=== PATIENT | male | born 1950 | race Caucasian/White ===

== ENCOUNTER 2019-05-10 02:37 | Outpatient (CLI) | payer OTHER, SELFPAY ==
[2019-05-10 10:40] LABS: Anion Gap 7.4 mmol/L (3-11); BUN 16 mg/dL (7-18); CO2 28.6 mmol/L (21.0-32.0); CREATININE 0.94 mg/dL (0.70-1.30); Calculated LDL 152 mg/dL; Chloride 105 mmol/L (98-107); Cholesterol 210 mg/dL (50-200); Glucose 87 mg/dL (70-100); HDL Cholesterol 41 mg/dL (40-60); Potassium 4.6 mmol/L (3.5-5.1); Sodium 141 mmol/L (136-145); Triglyceride 89 mg/dL (30-150)
[2019-05-11 10:25] LABS: PSA, Screening 1.9 ng/ml (0-4.5)
== END 2019-05-10 02:57 ==
PROVIDERS: PCP Emergency Medicine; Visit Provider Emergency Medicine
DX: I10 Essential (primary) hypertension (principal); Z12.5 Encounter for screening for malignant neoplasm of prostate
CPT/HCPCS: 36415; 80048; 80061; 84153

== ENCOUNTER 2020-08-07 03:41 | Outpatient (CLI) | payer OTHER, SELFPAY ==
[2020-08-07 09:37] LABS: Hemoglobin A1C 5.2 % (<5.7)
[2020-08-07 10:32] LABS: Anion Gap 7.6 mmol/L (3-11); BUN 24 mg/dL (7-18); CO2 26.4 mmol/L (21.0-32.0); CREATININE 0.83 mg/dL (0.70-1.30); Calcium 8.8 mg/dL (8.5-10.1); Calculated LDL 171 mg/dL (<100); Chloride 107 mmol/L (98-107); Cholesterol 227 mg/dL (<200); Glucose 89 mg/dL (74-106); HDL Cholesterol 43 mg/dL (40-60); Potassium 4.1 mmol/L (3.5-5.1); Sodium 141 mmol/L (136-145); Triglyceride 69 mg/dL (<150)
[2020-08-07 10:40] LABS: C-Reactive Protein 0.11 mg/dL (0.0-0.3)
[2020-08-08 09:11] LABS: Homocysteine 20.5 umol/L (5.0-13.9)
[2020-08-08 22:02] LABS: PSA, Screening 2.5 ng/mL (0.0-6.5)
== END 2020-08-07 04:01 ==
PROVIDERS: PCP Emergency Medicine; Visit Provider Emergency Medicine
DX: I10 Essential (primary) hypertension (principal); E78.5 Hyperlipidemia, unspecified; E11.9 Type 2 diabetes mellitus without complications; R41.89 Other symptoms and signs involving cognitive functions and awareness; Z12.5 Encounter for screening for malignant neoplasm of prostate
CPT/HCPCS: 36415; 80048; 80061; 83090; 84153; 83036; 86140

== ENCOUNTER 2020-10-23 03:41 | Outpatient (CLI) | payer OTHER, SELFPAY ==
[2020-10-23 11:08] LABS: ALT 21 U/L (16-63)
[2020-10-23 11:09] LABS: Calculated LDL 98 mg/dL (<100); Cholesterol 146 mg/dL (<200); HDL Cholesterol 39 mg/dL (40-60); Triglyceride 45 mg/dL (<150)
[2020-10-24 14:12] LABS: Lipoprotein (a) <6 mg/dL (<=30)
== END 2020-10-23 03:42 | disposition home or self-care (01) ==
LOC: LBO 03:41
PROVIDERS: PCP Emergency Medicine; Visit Provider Internal Medicine
DX: E78.00 Pure hypercholesterolemia, unspecified (principal)
CPT/HCPCS: 36415; 80061; 83695; 84460

== ENCOUNTER 2021-01-02 18:50 | Outpatient (REF) | payer OTHER, SELFPAY ==
[2021-01-02 13:08] LABS: Abs Immature Grans 0.03 10^3/uL (0.0-0.06); Absolute Basophil Count 0.02 10^3/uL (0.0-0.2); Absolute Eosinophil Count 0.04 10^3/uL (0.0-0.7); Absolute Monocyte Count 0.58 10^3/uL (0.1-0.8); Basophils % 0.3; Eosinophils % 0.7; HCT 43.8 % (40.0-50.0); HGB 14.9 g/dL (13.5-17.5); Immature Grans % 0.5; Lymphocytes % 12.1; MCH 31.8 pg (27.0-33.0); MCV 93.4 fL (80-95); MPV 11.1 fL (8.0-11.0); Monocytes % 10.1; Neutrophils % 76.3; Nucleated RBC 0 %; Platelet Count 185 10^3/uL (130-400); RBC 4.69 10^6/uL (4.36-5.78); RDW-SD 44.6 fL; WBC 5.77 10^3/uL (4.4-10.8)
[2021-01-02 13:13] LABS: C-Reactive Protein 11.89 mg/dL (0.0-0.3)
[2021-01-03 10:24] LABS: Lyme Ab w Rflx to Lyme Confirm Negative (Negative)
[2021-01-04 21:23] LABS: Anaplasma phagocytophilum Negative (Negative); B. miyamotoi PCR Negative (Negative); Babesia divergens/MO-1 Negative (Negative); Babesia duncani Negative (Negative); Babesia microti Negative (Negative); Ehrlichia chaffeensis Negative (Negative); Ehrlichia ewingii/canis Negative (Negative); Ehrlichia muris eauclairensis Negative (Negative)
== END 2021-01-02 18:51 | disposition home or self-care (01) ==
LOC: LBN 18:50
PROVIDERS: PCP Emergency Medicine; Visit Provider Physician Assistant
DX: R50.9 Fever, unspecified (principal); J02.9 Acute pharyngitis, unspecified
CPT/HCPCS: 87798; 85025; 86140; 86618; 87070; 87086

== ENCOUNTER 2021-02-26 22:53 | Outpatient (REF) | payer OTHER, SELFPAY ==
[2021-02-26 13:45] LABS: Abs Immature Grans 0.04 10^3/uL (0.0-0.06); Absolute Basophil Count 0.01 10^3/uL (0.0-0.2); Absolute Eosinophil Count 0.26 10^3/uL (0.0-0.7); Absolute Lymphocyte Count 0.85 10^3/uL (1.2-3.4); Absolute Monocyte Count 0.67 10^3/uL (0.1-0.8); Absolute Neutrophil Count 8.41 10^3/uL (1.2-6.7); Basophils % 0.1; Eosinophils % 2.5; HCT 47.5 % (40.0-50.0); HGB 15.8 g/dL (13.5-17.5); Immature Grans % 0.4; Lymphocytes % 8.3; MCH 31.5 pg (27.0-33.0); MCHC 33.3 % (32.0-36.0); MCV 94.6 fL (80-95); MPV 10.6 fL (8.0-11.0); Monocytes % 6.5; Neutrophils % 82.2; Nucleated RBC 0 %; Platelet Count 245 10^3/uL (130-400); RBC 5.02 10^6/uL (4.36-5.78); RDW 13.9 % (11.8-14.1); RDW-SD 46.2 fL; WBC 10.24 10^3/uL (4.4-10.8)
[2021-02-26 13:50] LABS: C-Reactive Protein 4.19 mg/dL (0.0-0.3)
[2021-02-27 11:27] LABS: Lyme Ab w Rflx to Lyme Confirm Positive (Negative)
[2021-02-27 14:36] LABS: Lyme IgG Ab Positive (Negative); Lyme IgM Ab Positive (Negative)
== END 2021-02-26 22:54 | disposition home or self-care (01) ==
LOC: LBN 22:53
PROVIDERS: PCP Emergency Medicine; Visit Provider Emergency Medicine
DX: G51.0 Bell's palsy (principal); M25.59 Pain in other specified joint
CPT/HCPCS: 86617; 85025; 86140; 86618

== ENCOUNTER 2022-01-15 18:06 | Outpatient (REF) | payer MEDICARE, SELFPAY ==
[2022-01-17 11:24] LABS: COVID-19 RT-PCR UVMMC Result Negative (Negative)
== END 2022-01-15 18:07 | disposition home or self-care (01) ==
LOC: LBN 18:06
PROVIDERS: PCP Family Medicine; Visit Provider Physician Assistant Medical
DX: Z20.822 Contact with and (suspected) exposure to COVID-19 (principal)
CPT/HCPCS: U0003

== ENCOUNTER 2022-02-21 01:36 | Outpatient (CLI) | payer MEDICARE, SELFPAY ==
[2022-02-21 13:35] LABS: ALT 20 U/L (16-63); AST 14 U/L (15-37); Albumin 3.8 g/dL (3.4-5.0); Alkaline Phosphatase 58 U/L (46-116); Anion Gap 7.8 mmol/L (3-11); BUN 21 mg/dL (7-18); Bilirubin, Total 0.4 mg/dL (0.2-1.0); CO2 28.2 mmol/L (21.0-32.0); Calcium 8.9 mg/dL (8.5-10.1); Chloride 107 mmol/L (98-107); Glucose 86 mg/dL (74-106); Potassium 4.3 mmol/L (3.5-5.1); Sodium 143 mmol/L (136-145); Total Protein 7.1 g/dL (6.4-8.2)
[2022-02-21 22:39] LABS: PSA, Diagnostic 2.6 ng/mL (<=6.5)
[2022-02-24 11:57] LABS: Lyme Ab w Rflx to Lyme Confirm Positive (Negative)
[2022-02-24 12:48] LABS: Lyme IgG Ab Positive (Negative); Lyme IgM Ab Positive (Negative)
[2022-02-25 18:34] LABS: Anaplasma phagocytophilum Negative (Negative); B. miyamotoi PCR Negative (Negative); Babesia divergens/MO-1 Negative (Negative); Babesia duncani Negative (Negative); Babesia microti Negative (Negative); Ehrlichia chaffeensis Negative (Negative); Ehrlichia ewingii/canis Negative (Negative); Ehrlichia muris eauclairensis Negative (Negative)
== END 2022-02-21 01:37 | disposition home or self-care (01) ==
LOC: LBO 01:36
PROVIDERS: PCP Family Medicine; Visit Provider Family Medicine
DX: I10 Essential (primary) hypertension (principal); N40.0 Benign prostatic hyperplasia without lower urinary tract symptoms; W57.XXXA Bitten or stung by nonvenomous insect and other nonvenomous arthropods, initial encounter; T14.8XXA Other injury of unspecified body region, initial encounter
CPT/HCPCS: 36415; 80053; 86617; 87798; 84153; 86618

== ENCOUNTER 2023-01-15 10:22 | Outpatient (REF) | payer MEDICARE, SELFPAY ==
[2023-01-15 13:28] LABS: Abs Immature Grans 0.02 10^3/uL (0.0-0.06); Absolute Basophil Count 0.06 10^3/uL (0.0-0.2); Absolute Eosinophil Count 0.21 10^3/uL (0.0-0.7); Absolute Lymphocyte Count 1.12 10^3/uL (1.2-3.4); Absolute Neutrophil Count 4.18 10^3/uL (1.2-6.7); Eosinophils % 3.5; HCT 49.7 % (40.0-50.0); HGB 17.2 g/dL (13.5-17.5); Immature Grans % 0.3; Lymphocytes % 18.7; MCH 31.6 pg (27.0-33.0); MCHC 34.6 % (32.0-36.0); MCV 91 fL (80-95); MPV 10.9 fL (8.0-11.0); Monocytes % 6.7; Neutrophils % 69.8; Platelet Count 247 10^3/uL (130-400); RBC 5.45 10^6/uL (4.36-5.78); RDW 13.2 % (11.8-14.1); RDW-SD 43.8 fL; WBC 5.99 10^3/uL (4.4-10.8)
[2023-01-16 12:15] LABS: Lyme Ab w Rflx to Lyme Confirm Positive (Negative)
[2023-01-16 13:59] LABS: Lyme IgG Ab Positive (Negative); Lyme IgM Ab Positive (Negative)
[2023-01-18 16:58] LABS: Anaplasma phagocytophilum Negative (Negative); B. miyamotoi PCR Negative (Negative); Babesia divergens/MO-1 Negative (Negative); Babesia duncani Negative (Negative); Babesia microti Negative (Negative); Ehrlichia chaffeensis Negative (Negative); Ehrlichia ewingii/canis Negative (Negative); Ehrlichia muris eauclairensis Negative (Negative)
== END 2023-01-15 10:23 | disposition home or self-care (01) ==
LOC: LBN 10:22
PROVIDERS: PCP Family Medicine; Visit Provider Physician Assistant
DX: R51.9 Headache, unspecified (principal); Z01.84 Encounter for antibody response examination
CPT/HCPCS: 86617; 87798; 85025; 86618

== ENCOUNTER 2023-06-11 07:42 | Emergency (ER) | payer MEDICARE, SELFPAY ==
[2023-06-11] VITALS (12 sets, daily range): BP systolic 110–152; BP diastolic 55–79; PULSE 49–68; RESP 18; TEMP 36.4; O2SAT 98
--- NOTE | 2023-06-11 08:06 | ED.GENADUL_ITS ---
Discharge Plan Disposition Patient Disposition: Home Discharge Details Clinical Impression: Nephrolithiasis, Left flank pain Primary Care Provider: Gaviota Smart ED Provider: Sanchez Nick Home Meds and New Rx's Prescriptions: New oxycodone 5 mg capsule 5 mg PO Q8H PRN (Reason: pain) Qty: 7 0RF Continued acyclovir 200 mg capsule 200 mg PO QID PRN (Reason: ulcer) Qty: 90 1RF clotrimazole-betamethasone 1-0.05 % cream 1 applic Topical TID PRN (Reason: dermatitis) Qty: 45 0RF triamcinolone acetonide 0.1 % cream 1 applic topical BID Qty: 80 0RF Rx Instructions: use at affected area mupirocin 2 % ointment 1 applic topical TID Qty: 15 0RF GenTeal Tears Severe Gel 0.3 % gel 1 drp ophthalmic (eye) QID PRN (Reason: dry eyes) Qty: 10 2RF hydrochlorothiazide 12.5 mg tablet 12.5 mg PO DAILY Qty: 90 3RF Hold Instructions: 02/21/19--Wants to manage HTN with lifestyle omeprazole 20 mg capsule,delayed release(DR/EC) 20 mg PO DAILY Qty: 90 4RF ondansetron 4 mg tablet,disintegrating 4 mg PO Q8H PRN (Reason: nausea and vomiting) Qty: 90 3RF Discontinued hydrocodone-acetaminophen 5-325 mg tablet 1 tab PO BID MDD 10mg PRN (Reason: pain) Qty: 14 0RF Discharge Instructions Instructions: Kidney Stones (ED) Additional Instructions: Please continue Flomax and aggressive oral hydration. Take the pain medication as prescribed. Can also take Tylenol and Motrin and use the narcotic for severe pain. Make sure to supplement this with stool softener. If your pain is not controlled, you are having vomiting, fever or other symptoms please follow-up with the [facility] emergency department so that your urologist can manage the symptoms. Medical Decision Making Emergent evaluation of flank pain. Initial differential includes renal colic, UTI, doubt bowel obstruction, no evidence of zoster. Initial plan for labs, fluid resuscitation and pain management. 0845 Lab work reviewed. Creatinine slightly more elevated than it was at [facility] on 06/06 (1.23) urinalysis with hematuria, no signs of infection. Will order ultrasound to evaluate given worsening renal function 0900: Patient denies any significant improvement in symptoms after droperidol. Will give IV morphine 1130: Ultrasound report reviewed, there is mild hydro but jets on the left side. No evidence of obstruction. Pain initially improved with morphine but is now returning, will give an oral dose of medication. I discussed with [facility] urology. Patient's symptoms are expected for this. After the lithotripsy. The goal would be to get adequate pain control. If patient's pain cannot be controlled, they recommend that he come to the [facility] ER for admission for stent placement. 1200: Patient reports improvement in symptoms with the oxycodone. Will prescribe a short course of these as well as Zofran. Recommend continued Motrin and Tylenol. Recommend that he restart his Flomax. At this time he is stable for discharge home. Strict return precautions advised recommend following up with [facility] if his symptoms have not resolved Medical Records Medical records reviewed: Yes I reviewed the patient's medical records. Medical records narrative: [facility] [place] [facility] [place] L [facility] on 05/29/23 ED visit 05/[address] 06/04: 5mm distal left steinstrasse CT 06/05: distal progression of stone Lab Data Lab results reviewed: Yes I reviewed the patient's lab results. HPI General Date/Time Provider Initiated Documentation: 06/11/23 07:46 . Limitations to Documentation: no limitations . Information obtained by: patient . HPI Narrative: 73-year-old gentleman with past medical history of renal colic and recent lithotripsy presents for evaluation of left flank pain. He has been having issues and repeated ER visits and hospitalization at [facility] over the last 2 weeks. Symptoms had improved but starting last night symptoms returned. Pain is severe, not relieved with Vicodin. Associated with nausea but no vomiting. Denies any dysuria, hematuria, difficulty urinating. He has not noted any stones passing. He had been taking Flomax but stopped it because he thought it was giving him a rash Related Data Home Medications Medication Instructions Recorded Confirmed artificial tears(hypromellose) 0.3 1 drp ophthalmic (eye) QID PRN dry 03/22/21 06/11/23 % eye gel (GenTeal Tears Severe) eyes #10 grams acyclovir 200 mg capsule 200 mg PO QID PRN ulcer #90 caps 12/17/21 06/11/23 clotrimazole-betamethasone 1 1 applic topical TID PRN 12/30/21 06/11/23 %-0.05 % topical cream dermatitis #45 grams triamcinolone acetonide 0.1 % 1 applic topical BID #80 grams 12/30/21 06/11/23 topical cream hydrochlorothiazide 12.5 mg tablet 12.5 mg PO DAILY #90 tab-caps 01/12/23 06/11/23 mupirocin 2 % topical ointment 1 applic topical TID #15 grams 01/15/23 06/11/23 omeprazole 20 mg capsule,delayed 20 mg PO DAILY #90 caps 06/09/23 06/11/23 release ondansetron 4 mg disintegrating 4 mg PO Q8H PRN nausea and 06/11/23 tablet vomiting #90 tabs oxycodone 5 mg capsule 5 mg PO Q8H PRN pain #7 caps 06/11/23 Previous Rx's Medication Instructions Recorded artificial tears(hypromellose) 0.3 1 drp ophthalmic (eye) QID PRN dry 03/22/21 % eye gel (GenTeal Tears Severe) eyes #10 grams acyclovir 200 mg capsule 200 mg PO QID PRN ulcer #90 caps 12/17/21 clotrimazole-betamethasone 1 1 applic topical TID PRN 12/30/21 %-0.05 % topical cream dermatitis #45 grams triamcinolone acetonide 0.1 % 1 applic topical BID #80 grams 12/30/21 topical cream hydrochlorothiazide 12.5 mg tablet 12.5 mg PO DAILY #90 tab-caps 01/12/23 mupirocin 2 % topical ointment 1 applic topical TID #15 grams 01/15/23 omeprazole 20 mg capsule,delayed 20 mg PO DAILY #90 caps 06/09/23 release ondansetron 4 mg disintegrating 4 mg PO Q8H PRN nausea and 06/11/23 tablet vomiting #90 tabs oxycodone 5 mg capsule 5 mg PO Q8H PRN pain #7 caps 06/11/23 Allergies Allergy/AdvReac Type Severity Reaction Status Date / Time lisinopril AdvReac Intermediate Nausea, Verified 06/11/23 07:51 body aches amlodipine AdvReac Mild nausea Verified 06/11/23 07:51 General Stated Complaint: Urinary ELLEN: 3 PFSH All Active Problems (Updated 06/11/23 @ 12:36 by Sanchez Nick MD) Left flank pain (Acute) Esophageal thickening (Acute) Inguinal hernia (Acute) Left groin hernia (Acute) Nephrolithiasis (Chronic) Nail dystrophy (Acute) Toe anomaly (Acute) Tick bite (Acute) Skier's thumb (Acute) Herrmann's palsy (Acute) Blepharitis (Acute) Essential hypertension (Acute 10/21/16) Family History Mother , AGE 85 Depression Alcohol abuse Hypertension Father , AGE 37 Diabetes Depression Alcohol abuse Sister Alcohol abuse Brother Heart disease Hyperlipidemia Prostate cancer Alcohol abuse Maternal Grandfather , AGE 63 Diabetes Alcohol abuse Maternal Grandmother , AGE 91 Alcohol abuse Brother Alcohol abuse Depression Son No problems noted. Son No problems noted. Social History Smoking/Tobacco Use Status: Never Second Hand Exposure: No Smoking risk assessment performed?: Yes Alcohol Intake: never Drug use: Never Substance use type: does not use current occupation: TEACHER Pets and animals: Yes Pets and animals: cat(s) What type of physical activity do you participate in: swimming Duration: 30-45 minutes/day Frequency: 3-4 times per week Yolanda/Gnosticist: No preference Special yolanda needs: No Exam Narrative Exam Narrative: Review of Systems: All systems reviewed & are unremarkable except as noted in HPI and below: CONSTITUTIONAL: Alert and oriented Well-developed, no acute distress HEENT: NACT EYES: PERRL, no conjunctival injection CVS: RRR, No murmurs or gallops. Peripheral pulses 2+ and equal in all extremities Brisk capillary refill in all extremities. No peripheral edema RESP: Unlabored respiratory effort, Clear to auscultation bilaterally No wheezes rales or rhonchi GI: Soft, Nontender, Nondistended, No organomegaly, no CVAT MSK: Extremities with full range of motion, no deformity or TTP SKIN: Warm, Dry. No rashes or lesions. NEURO: No focal neurologic deficits. Course Vital Signs Vital signs: Vital Signs Temperature 36.4 C L 06/11/23 07:47 Pulse 65 06/11/23 07:47 Respiratory Rate 18 06/11/23 07:47 Blood Pressure 152/79 H 06/11/23 07:47 Pulse Oximetry 98 06/11/23 07:47 Temperature 36.4 C L 06/11/23 07:47 Temperature Source Axillary 06/11/23 07:47 Pulse 65 06/11/23 07:47 Respiratory Rate 18 06/11/23 07:47 Respiratory Effort Normal, Non-Labored 06/11/23 07:51 Blood Pressure 152/79 H 06/11/23 07:47 Blood Pressure Position Sitting 06/11/23 07:47 Pulse Oximetry 98 06/11/23 07:47 Oxygen Delivery Method Room Air 06/11/23 07:47 Oxygen Flow Rate 0 06/11/23 07:47
[2023-06-11 08:16] LABS: Bilirubin Negative (Negative); Blood Moderate (Negative); Clarity Clear (Clear); Glucose Negative (Negative); Ketones Negative (Negative); Leukocyte Esterase Negative (Negative); Nitrite Negative (Negative); Specific Gravity >= 1.030 (1.005-1.025); Urobilinogen 0.2 mg/dL (Up to 0.2); pH 5.5 (5-8)
[2023-06-11 08:23] LABS: Abs Immature Grans 0.03 10^3/uL (0.0-0.06); Absolute Basophil Count 0.06 10^3/uL (0.0-0.2); Absolute Eosinophil Count 0.15 10^3/uL (0.0-0.7); Absolute Lymphocyte Count 0.91 10^3/uL (1.2-3.4); Absolute Monocyte Count 0.39 10^3/uL (0.1-0.8); Absolute Neutrophil Count 7.23 10^3/uL (1.2-6.7); Basophils % 0.7; Eosinophils % 1.7; HGB 15.3 g/dL (13.5-17.5); Immature Grans % 0.3; Lymphocytes % 10.4; MCH 30.6 pg (27.0-33.0); MCV 90 fL (80-95); MPV 9.5 fL (8.0-11.0); Monocytes % 4.4; Neutrophils % 82.5; Platelet Count 320 10^3/uL (130-400); RDW 12.7 % (11.8-14.1); WBC 8.77 10^3/uL (4.4-10.8)
[2023-06-11 08:23] LABS: Bacteria Few HPF (Negative); C & S Indicated? Yes; Casts Negative LPF (Negative); Crystals Negative HPF (Negative); Epithelial Cells Few HPF (Negative); Mucus Trace (Negative); RBC 20-50 HPF (0-2)
[2023-06-11] MEDS: Normal Saline 1,000 ML 1000 ML IV (08:29)
[2023-06-11 08:38] LABS: ALT 73 U/L (16-63); AST 19 U/L (15-37); Albumin 3.5 g/dL (3.4-5.0); Alkaline Phosphatase 61 U/L (46-116); BUN 29 mg/dL (7-18); Bilirubin, Total 0.6 mg/dL (0.2-1.0); CREATININE 1.5 mg/dL (0.70-1.30); Calcium 8.8 mg/dL (8.5-10.1); Chloride 103 mmol/L (98-107); Estimated GFR 48.85 (mL/min/1.73m2); Glucose 147 mg/dL (74-106); Potassium 3.6 mmol/L (3.5-5.1); Sodium 138 mmol/L (136-145); Total Protein 7.6 g/dL (6.4-8.2)
[2023-06-11] MEDS: Droperidol 5 MG/2 ML VIAL 2.5 MG IVP (08:42)
--- NOTE | 2023-06-11 08:45 | DI.US_ITS ---
Exam(s) US RENAL EXAM: US RENAL CLINICAL HISTORY: renal stones TECHNIQUE: Ultrasound of both kidneys performed using standard protocol. COMPARISON: US CAROTID ULTRASOUND from 05/30/2011 CT RENAL COLIC WO CONTRAST from 02/10/2016 FINDINGS: RIGHT KIDNEY: Measures 9.5 cm in length. There is a 3 x 3 cm area of hypodensity in the right upper lobe region wh ich most probably corresponds to a cyst which was evident on CT scan of 2016. There is also another tiny exophytic 0.7 cm cyst. This is at the lower pole level.. Normal cortical thickness and cortico medullary differentiation .No solid masses No obvious intrarenal calculi nor hydronephrosis. LEFT KIDNEY: Measures 12 cm in length. No cysts evident. Normal cortical thickness and corticomedullary different iaion. No solids masses. There are 2 calculi identified measuring 8 mm (upper pole) and 6 mm (lower pole). There is slight prominence of the renal infundibula of the left kidney. May indicate mild hy dronephrosis. There is no cortical mantle thinning. URINARY BLADDER: Prevoid volume is 162 cc Not able to void No evidence of bladder mass nor diverticuli. Ureterovesical jets: Both identified. But asymmetric, right more prominent than left. IMPRESSION: 1. There are 2 calculi in left kidney, as evident on CT scan of January 2016. Slight dilatation of the infundibulum of this kidney noted. In addition, the left ureterovesical jet in the urinary bladder is observed to be less strong than the right side. Cannot exclude the possibly of a non completely o bstructive calculus in the left ureter. Correlation with clinical findings recommended. 2. There is a 3 cm cyst in the right kidney corresponding to what is seen on 2016 CT scan. Another finding in the right kidney noted which is probably a column of Nando. The multiple small calculi s een in the right kidney on the 2016 CT scan are not seen on ultrasound examination today. 3. If clinically indicated follow-up CT scan for added sensitivity and specificity can be performed. DATA REPOSITORY:
[2023-06-11] MEDS: MORPHine 10 MG/ML VIAL 6 MG IVP (09:11)
[2023-06-11] MEDS: oxyCODONE 5 MG TAB PO (11:35)
== END 2023-06-11 12:50 | disposition home or self-care (01) ==
PROVIDERS: Emergency Provider Emergency Medicine; PCP Family Medicine
DX: N20.0 Calculus of kidney (principal); I10 Essential (primary) hypertension
CPT/HCPCS: 76770; 80053; 96361; 96374; 96375; 99284; 81003; 81015; 85025; 87086; J1790; J2270

== ENCOUNTER → 2023-06-17 08:54 | Outpatient (BNVA) | payer MEDICARE, SELFPAY | PROVIDERS: PCP Family Medicine; Referring Provider Family Medicine; Visit Provider Surgery | DX: K22.89 Other specified disease of esophagus (principal) | CPT/HCPCS: 99214 ==

== ENCOUNTER 2023-07-03 09:26 | Day surgery (SDC) | payer MEDICARE, SELFPAY ==
--- NOTE | 2023-07-02 20:12 | W.PM.DSUDISC ---
Date of service: 07/03/23 Discharge Plan Disposition Patient Disposition: Home Condition: Good Discharge Details Reason For Visit: EGD Attending Provider: Crispin Acosta Primary Care Provider: Gaviota Smart Home Meds and New Rx's Prescriptions: Continued acyclovir 200 mg capsule 200 mg PO QID PRN (Reason: ulcer) Qty: 90 1RF tamsulosin [Flomax] 0.4 mg capsule 0.4 mg PO DAILY clotrimazole-betamethasone 1-0.05 % cream 1 applic Topical TID PRN (Reason: dermatitis) Qty: 45 0RF triamcinolone acetonide 0.1 % cream 1 applic topical BID Qty: 80 0RF Rx Instructions: use at affected area mupirocin 2 % ointment 1 applic topical TID Qty: 15 0RF GenTeal Tears Severe Gel 0.3 % gel 1 drp ophthalmic (eye) QID PRN (Reason: dry eyes) Qty: 10 2RF hydrochlorothiazide 12.5 mg tablet 12.5 mg PO DAILY Qty: 90 3RF Hold Instructions: 02/21/19--Wants to manage HTN with lifestyle omeprazole 20 mg capsule,delayed release(DR/EC) 20 mg PO DAILY Qty: 90 4RF Discharge Instructions Additional Instructions: 1. If tolerated, consume a soft, low fiber diet for 1-2 days. 2[address] Do not drive, drink alcohol, operate machinery, make critical decisions, or do activities that require coordination or balance for 24 hours. 3. You may experience a sore throat for 24 to 48 hours. You may use throat lozenges or gargle with warm salt water to relieve the discomfort. 4. Because air was put into your stomach during the procedure, you may experience some belching. 5. Go directly to the emergency room if you notice any of the following: Develop chills (warm to touch), or if you have a thermometer and your temperature is above 101 Difficulty breathing or difficultly swallowing Persistent vomiting Severe abdominal pain, other than gas cramps Severe chest pain Black, tarry stools Any bleeding ? exceeding one tablespoon 6. Call your physician if the site where your intravenous was started becomes red, swollen, painful, and warm to touch. 7. Your physician has reviewed your pre-procedure medications. Please continue to take those medications as previously ordered. You will be given specific information/education regarding any changes to your medications before leaving. Activity:: Activity as Tolerated Diet:: As Tolerated DS: Diagnosis Discharge Diagnosis (1) Esophageal thickening: Status: Acute
--- NOTE | 2023-07-02 20:17 | W.PM.ENDDOP ---
Date of service: 07/03/23 Endoscopy Report DATE OF PROCEDURE: 07/03/23 PRE-OP DIAGNOSIS: Esophageal thickening PROCEDURE: EGD SURGEON: Crispin Acosta ANESTHESIA TYPE: General:No Airway COMPLICATIONS: None DISPOSITION: same day INDICATIONS: Tereso is 73 years old. He underwent CT scan as part of work up for kidney stones. Incidentally, he was found to have esophageal wall thickeing. He is here for diagnostic EGD
[2023-07-03] VITALS (7 sets, daily range): BP systolic 98–130; BP diastolic 57–90; PULSE 62–68; RESP 13–18; TEMP 36.4–36.6; O2SAT 95–98; BMI 25.0
[2023-07-03] MEDS: Lactated Ringers 1,000 ML 80 ML IV (10:11)
--- NOTE | 2023-07-03 11:48 | ANES.PREOP_ITS ---
General Info Date of Service Date Performed: 07/03/23 Height: 5 ft 11 in Weight: 81.3 kg Body Mass Index (BMI): 25.0 Surgical Procedure: Operation Date: 07/03/23 11:35 Proposed Procedure Side Surgeon p Gastroscopy Crispin Acosta MD Meds Allergies and Home Medications Allergies Allergy/AdvReac Type Severity Reaction Status Date / Time lisinopril AdvReac Intermediate Nausea, Verified 07/03/23 09:57 body aches amlodipine AdvReac Mild nausea Verified 07/03/23 09:57 Home Medication Medication Instructions Recorded artificial tears(hypromellose) 0.3 1 drp ophthalmic (eye) QID PRN dry 03/22/21 % eye gel (GenTeal Tears Severe) eyes #10 grams acyclovir 200 mg capsule 200 mg PO QID PRN ulcer #90 caps 12/17/21 clotrimazole-betamethasone 1 1 applic topical TID PRN 12/30/21 %-0.05 % topical cream dermatitis #45 grams triamcinolone acetonide 0.1 % 1 applic topical BID #80 grams 12/30/21 topical cream hydrochlorothiazide 12.5 mg tablet 12.5 mg PO DAILY #90 tab-caps 01/12/23 mupirocin 2 % topical ointment 1 applic topical TID #15 grams 01/15/23 omeprazole 20 mg capsule,delayed 20 mg PO DAILY #90 caps 06/09/23 release tamsulosin 0.4 mg capsule (Flomax) 0.4 mg PO DAILY 06/17/23 Current Visit Medications: Current Medications Generic Name Dose Route Start Last Admin Trade Name Lacey PRN Reason Stop Dose Admin Hyoscyamine Sulfate 0.125 mg 07/02/23 20:20 Hyoscyamine 0.125 Mg Sl/Oral/Chew SL 08/01/23 20:19 DIRECTED PRN Ringer's Solution 1,000 mls @ 80 mls/hr 07/03/23 06:00 07/03/23 10:11 IV 07/03/23 23:59 80 mls/hr INFUSION JESSICA Administration IV Miscellaneous Supplies 1 each 07/03/23 06:00 Iv Access IV 07/03/23 23:59 DIRECTED JESSICA Ondansetron HCl 4 mg 07/02/23 20:20 Ondansetron 4 Mg/2 Ml Vial IVP 08/01/23 20:19 Q4H PRN PRN Nausea / Vomiting Sodium Chloride 0 ml 07/03/23 06:00 Normal Saline Flush 10 Ml Syr IV 07/03/23 23:59 PRN PRN Sodium Chloride 0 ml 07/03/23 06:00 Normal Saline 10 Ml Vial IJ 07/03/23 23:59 DIRECTED PRN Sterile Water 0 ml 07/03/23 06:00 Water,Injection,Sterile 10 Ml Vial IJ 07/03/23 23:59 DIRECTED PRN PFSH Active Problems Active Problems: Problem Status Onset Code Left ureteral stone ~06/04/23 N20.1 Left flank pain R10.9 Esophageal thickening K22.89 Inguinal hernia K40.90 Left groin hernia K40.90 Nephrolithiasis N20.0 Nail dystrophy L60.3 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 Tick bite W57.XXXA Skier's thumb S63.649A 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 Blepharitis H01.009 Essential hypertension 10/21/16 I10 Tobacco Smoking/Tobacco Use Status: Never Second hand exposure: No Alcohol Alcohol Intake: never Substance Use Substance use: Never Substance use type: does not use Vital Signs and Lab Results Vital Signs Most Recent Vital Signs in EMR: Most Recent Vital Signs Temp Pulse Resp BP Pulse Ox 36.5 C 68 16 125/88 98 07/03/23 09:47 07/03/23 09:47 07/03/23 09:47 07/03/23 09:47 07/03/23 09:47 Lab Results Blood Type / Crossmatch: No Data to Display Complete Blood Count: White Blood Count 8.77 10^3/uL (4.4-10.8) 06/11/23 08:16 Red Blood Count 5.00 10^6/uL (4.36-5.78) 06/11/23 08:16 Hemoglobin 15.3 g/dL (13.5-17.5) 06/11/23 08:16 Hematocrit 45.0 % (40.0-50.0) 06/11/23 08:16 Platelet Count 320 10^3/uL (130-400) 06/11/23 08:16 Complete Metabolic Panel: Sodium 138 mmol/L (136-145) 06/11/23 08:16 Potassium 3.6 mmol/L (3.5-5.1) 06/11/23 08:16 Chloride 103 mmol/L (98-107) 06/11/23 08:16 Carbon Dioxide 25.0 mmol/L (21.0-32.0) 06/11/23 08:16 BUN 29 mg/dL (7-18) H 06/11/23 08:16 Creatinine 1.5 mg/dL (0.70-1.30) H 06/11/23 08:16 Est GFR (CKD-EPI 2020) 48.85 (mL/min/1.73m2) 06/11/23 08:16 Calcium 8.8 mg/dL (8.5-10.1) 06/11/23 08:16 Albumin 3.5 g/dL (3.4-5.0) 06/11/23 08:16 Glucose 147 mg/dL (74-106) H 06/11/23 08:16 Liver Function Panel: Alanine Aminotransferase (ALT/SGPT) 73 U/L (16-63) H 06/11/23 0 8:16 Aspartate Amino Transf (AST/SGOT) 19 U/L (15-37) 06/11/23 08:16 Coagulation Panel: No Data to Display Cardiac Panel: No Data to Display Arterial Blood Gas: No Data to Display Venous Blood Gas: No Data to Display Pancreas Panel: No Data to Display Thyroid Panel: No Data to Display Infectious Disease: No Data to Display Blood Cultures: No Data to Display Toxicology Panel: No Data to Display Anesthesia Assessment and Plan Anesthesia History Personal History: No History of Anesthesia Complications Family History: No Family History of Anesthesia Complications Exercise Tolerance Exercise Tolerance: Metabolic Equivalents>4 Pertinent Negatives Pertinent Negatives: No Symptoms of GERD, No Major Cardiovascular Symptoms or Complaints and No Major Pulmonary Symptoms or Complaints Cardiac & Pulmonary Exam Cardiac Exam: Normal S1/S2 Heart Sounds Pulmonary Exam: Clear Bilateral Breath Sounds Implantable Cardiac Device Does patient have a Pacemaker or an ICD?: No Airway Exam Known Difficult Airway: No Mallampati Class: 1 Mouth Opening: Normal (> 3cm) Thyromental Distance: Greater than 3 cm Neck Range of Motion: Full ROM Neck Circumference: Normal Teeth Condition: Normal Dentition ASA Classification ASA Score: ASA 2 Emergency Case?: No NPO Status NPO Status: NPO Clears >2 hours, Solids >8 hours Anesthesia Plan Resuscitation Status: Full Code Anesthesia Technique: General Anesthesia Airway Planned: Natural Airway Monitors Used: Standard Monitors
--- NOTE | 2023-07-03 12:26 | STOM_PTH ---
PATIENT: Tereso Loyd LOC: [facility] U#:[id number] AGE/SX: 73/M ROOM: RE07/03/[address]: Crispin Acosta MD : 1950 BED: DIS: 07/03/2023 SPEC #: [id number] RECD: 07/03/23 17:08 STATUS: [facility] #: [id number] PANFILO: 07/03/23 12:[address]: Crispin Acosta DEPT: Surgical Specimen RECD BY: Cynthia Mcelroy ENTERED: 07/03/23 17:09 SP TYPE: STOMACH OTHR DR: Gaviota Smart MD, DC Tissues: 1 - BIOPSY BOWEL 2 - STOMACH BIOPSY 3 - STOMACH BIOPSY 4 - ESOPHAGUS BIOPSY 5 - ESOPHAGUS BIOPSY Procedures: GROSS AND MICRO LEVEL 4 Comments: [id number]
--- NOTE | 2023-07-03 13:14 | W.PM.DSUDISC ---
Date of service: 07/03/23 Time of Service: 13:15 Discharge Plan Disposition Patient Disposition: Home Condition: Good Discharge Details Reason For Visit: EGD Attending Provider: Crispin Acosta Primary Care Provider: Gaviota Smart Home Meds and New Rx's Prescriptions: Continued acyclovir 200 mg capsule 200 mg PO QID PRN (Reason: ulcer) Qty: 90 1RF tamsulosin [Flomax] 0.4 mg capsule 0.4 mg PO DAILY clotrimazole-betamethasone 1-0.05 % cream 1 applic Topical TID PRN (Reason: dermatitis) Qty: 45 0RF triamcinolone acetonide 0.1 % cream 1 applic topical BID Qty: 80 0RF Rx Instructions: use at affected area mupirocin 2 % ointment 1 applic topical TID Qty: 15 0RF GenTeal Tears Severe Gel 0.3 % gel 1 drp ophthalmic (eye) QID PRN (Reason: dry eyes) Qty: 10 2RF hydrochlorothiazide 12.5 mg tablet 12.5 mg PO DAILY Qty: 90 3RF Hold Instructions: 02/21/19--Wants to manage HTN with lifestyle omeprazole 20 mg capsule,delayed release(DR/EC) 20 mg PO DAILY Qty: 90 4RF Discharge Instructions Additional Instructions: 1. If tolerated, consume a soft, low fiber diet for 1-2 days. 2[address] Do not drive, drink alcohol, operate machinery, make critical decisions, or do activities that require coordination or balance for 24 hours. 3. You may experience a sore throat for 24 to 48 hours. You may use throat lozenges or gargle with warm salt water to relieve the discomfort. 4. Because air was put into your stomach during the procedure, you may experience some belching. 5. Go directly to the emergency room if you notice any of the following: Develop chills (warm to touch), or if you have a thermometer and your temperature is above 101 Difficulty breathing or difficultly swallowing Persistent vomiting Severe abdominal pain, other than gas cramps Severe chest pain Black, tarry stools Any bleeding ? exceeding one tablespoon 6. Call your physician if the site where your intravenous was started becomes red, swollen, painful, and warm to touch. 7. Your physician has reviewed your pre-procedure medications. Please continue to take those medications as previously ordered. You will be given specific information/education regarding any changes to your medications before leaving. Findings: hiatal hernia w/ esophagitis and reflux duodenitis/gastritis Continue with lifestyle modifications: no alcohol, tobacco products, Aspirin or NSAID's (ibuprofen, Motrin, Naprosyn, aleve, etc), soda pop/any carbonated beverages, caffeine (including tea & chocolate), and acidic foods, (tomatoes, citrus, onions, peppermints) spicy or fried/fatty foods. Do not lie down for 30 minutes after eating, and do not eat 2 hours prior to bedtime. Avoid wearing tight fitting clothing/ belts -Start protonix daily -The office will send you a letter with the biopsy results in 2 to 3 weeks time. -You can follow-up with our office or Dr. Smart in 4 to 6 weeks to [facility] [phone] Activity:: Activity as Tolerated Diet:: As Tolerated Discharge Orders Discharge Orders: Discharge Order (Routine); Ordered 07/02/23 Ordered By: Crispin Acosta DS: Diagnosis Discharge Diagnosis (1) Esophageal thickening: Status: Acute (2) Hiatal hernia with GERD: Status: Acute (3) Duodenitis: Status: Acute (4) Gastritis: Status: Acute (5) Esophagitis: Status: Acute (6) Acute dehydration: Status: Acute
--- NOTE | 2023-07-03 13:27 | W.ANESPOSTOP ---
Postoperative Evaluation Date, Time and Location Date Performed: 07/03/23 Time Performed: 13:10 Patient Location: PACU Vital Signs Most Recent Imported Vital Signs: Most Recent Vital Signs Temp Pulse Resp BP Pulse Ox 36.6 C 66 16 123/85 97 07/03/23 13:15 07/03/23 13:15 07/03/23 13:15 07/03/23 13:15 07/03/23 13:15 Pain Score Most Recent Pain Score: Most Recent Pain Score Pain Level 0 07/03/23 13:15 Assessment Mental Status: Awake (Alert & Oriented to Patient Baseline) Airway and Respiratory Function: Patent airway with normal (patient baseline) respiratory exam Cardiovascular Function: Hemodynamically Stable Hydration Status: Adequately Hydrated Nausea & Vomiting: No Nausea or Vomiting Pain: Pt. Denies Any Pain Peripheral Nerve Block: Patient did not receive a nerve block
--- NOTE | 2023-07-04 00:12 | ENDO_ITS ---
Date of service: 07/04/23 Time of Service: 12:00 Endoscopy Report DATE OF PROCEDURE: 07/04/23 PRE-OP DIAGNOSIS: abnormal CT/dysphagia POST-OP DIAGNOSIS: other (hiatal hernia/esophagitis/gastritis/duodenitis) SURGEON: Silvana Crowell ANESTHESIA TYPE: General:No Airway ESTIMATED BLOOD LOSS: 2 PATHOLOGY: other COMPLICATIONS: None DISPOSITION: same day PROCEDURE DESCRIPTION: After informed consent was obtained the patient was take to the procedure room and placed in a supine position. Monitors were applied and a time out was done. The patients name, date of , procedure type, allergies to medications and metal in their body was reviewed. A bite block was placed and the patient was sedated. Once sedated and comfortable the gastroscope was advanced through the oropharynx which was grossly normal into the esophagus. The proximal and mid- esophagus were noraml. In the distal esophagus there was mild esophagitis and a small hiatal hernia. There are no tumors/varices or strictures. Noted. The scope was advanced into the stomach and through the pylorus into the 3rd portion of the duodenum. The duodenum was noted to have mild duodenitis. There are no active bleeding. Biopsies were done, all specimens are retrieved and no bleeding is noted.. The scope was retracted back into the stomach and biopsies were done to rule out H. pylori. There were no ulcers/there was mild duodenitis radiating from the antrum in a striped fashion. The scope was retroflexed. The cardia and fundus were noted to be normal. There small 2 cm sliding-type hiatal hernia noted. The scope was retracted back into the esophagus and biopsies were done of the GE junction to rule out Saucedo's. The Z line was irregular. The GE junction was at 38 cm. The scope was removed and the patient was woken up and taken back to [facility] in stable condition.
== END 2023-07-03 14:00 | disposition home or self-care (01) ==
LOC: SUR 09:26
PROVIDERS: Surgery; PCP Family Medicine; Visit Provider Surgery
PROC: 0DJ68ZZ Inspection of Stomach, Via Natural or Artificial Opening Endoscopic (ICD-10-PCS; CPT 43235; principal; 2023-07-03 11:30)
DX: K29.80 Duodenitis without bleeding (principal); K29.70 Gastritis, unspecified, without bleeding; K20.90 Esophagitis, unspecified without bleeding; K21.9 Gastro-esophageal reflux disease without esophagitis; K44.9 Diaphragmatic hernia without obstruction or gangrene; R93.89 Abnormal findings on diagnostic imaging of other specified body structures; R13.10 Dysphagia, unspecified; K22.89 Other specified disease of esophagus
CPT/HCPCS: 43239; 88305; J2001

== ENCOUNTER → 2023-07-23 14:41 | Outpatient (BNVA) | payer MEDICARE, SELFPAY | PROVIDERS: PCP Family Medicine; Referring Provider Family Medicine; Visit Provider Surgery | DX: Z48.815 Encounter for surgical aftercare following surgery on the digestive system (principal) | CPT/HCPCS: 99214 ==

== ENCOUNTER 2024-01-29 12:04 | Outpatient (CLI) | payer MEDICARE, SELFPAY ==
[2024-01-29 12:43] LABS: Calculated LDL 148 mg/dL (<100); Cholesterol 213 mg/dL (<200); HDL Cholesterol 42 mg/dL (40-60); Triglyceride 118 mg/dL (<150)
[2024-01-29 22:48] LABS: PSA, Diagnostic 2.5 ng/mL (<=6.5)
== END 2024-01-29 12:05 | disposition home or self-care (01) ==
LOC: LBO 12:05
PROVIDERS: PCP Family Medicine; Visit Provider Family Medicine
DX: N40.0 Benign prostatic hyperplasia without lower urinary tract symptoms (principal); I70.90 Unspecified atherosclerosis
CPT/HCPCS: 36415; 80061; 84153

== ENCOUNTER 2024-02-02 10:32 | Outpatient (CLI) | payer MEDICARE, SELFPAY ==
[2024-02-04 23:42] LABS: Anaplasma phagocytophilum Negative (Negative); B. miyamotoi PCR Negative (Negative); Babesia divergens/MO-1 Negative (Negative); Babesia duncani Negative (Negative); Babesia microti Negative (Negative); Ehrlichia chaffeensis Negative (Negative); Ehrlichia ewingii/canis Negative (Negative); Ehrlichia muris eauclairensis Negative (Negative)
== END 2024-02-02 10:33 | disposition home or self-care (01) ==
LOC: LOS 10:32
PROVIDERS: PCP Family Medicine; Visit Provider Family Medicine
DX: W57.XXXA Bitten or stung by nonvenomous insect and other nonvenomous arthropods, initial encounter (principal); I10 Essential (primary) hypertension
CPT/HCPCS: 36415; 87798

== ENCOUNTER 2024-10-07 09:13 | Day surgery (SDC) | payer MEDICARE, SELFPAY ==
[2024-10-07 09:20] VITALS: BP 144/83; PULSE 69; RESP 16; TEMP 36.4; O2SAT 97
[2024-10-07] MEDS: Tropicam./Phenyleph. (1/2.5%) 5 ML BTL OS ×3 (09:36→09:48)
[2024-10-07 09:54] VITALS: BMI 25.4
--- NOTE | 2024-10-07 09:54 | ANES.PREOP_ITS ---
General Info Date of Service Date Performed: 10/07/24 Height: 5 ft 9 in Weight: 78.188 kg Body Mass Index (BMI): 25.4 Surgical Procedure: Operation Date: 10/07/24 11:40 Proposed Procedure Side Surgeon p Cataract Extraction with IOL Implant Left Dwight Chau MD Actual Procedure Side Surgeon p Cataract Extraction with IOL Implant Left Dwight Chau MD Pre-Op Diagnosis Post-Op Diagnosis LEFT CATARACT Meds Allergies and Home Medications Allergies Allergy/AdvReac Type Severity Reaction Status Date / Time lisinopril AdvReac Intermediate Nausea, Verified 10/07/24 09:33 body aches amlodipine AdvReac Mild nausea Verified 10/07/24 09:33 Home Medication ?Medication ?Instructions ?Recorded acyclovir 200 mg capsule 200 mg PO QID PRN ulcer #90 caps 03/04/24 pantoprazole 40 mg tablet,delayed 40 mg PO DAILY #90 tabs 09/26/24 release (Protonix) Current Visit Medications: Current Medications Generic Name Dose Route Start Last Admin Trade Name Freq PRN Reason Stop Dose Admin Acetaminophen 1,000 mg 10/07/24 06:00 Acetaminophen 500 Mg Tab PO 11/06/24 05:59 Q4H PRN PRN Balanced Salt Solution 500 ml 10/07/24 06:00 Balanced Salt Soln.-Plus 500 Ml Bag OP 11/06/24 05:59 DIRECTED [facility] Miscellaneous Medication 0 ml 10/07/24 06:00 Prednisolone 1%, Moxifloxacin 0.5%, Bromfenac 0.09% 5.6ml Btl OS 11/06/24 05:59 DIRECTED [facility] Miscellaneous Medication 0 ml 10/07/24 06:00 10/07/24 09:48 Tropicam./Phenyleph. (1/2.5%) 5 Ml Btl OS 11/06/24 05:59 1 drp DIRECTED JESSICA Administration Tetracaine HCl 0 ml 10/07/24 06:00 Tetracaine 0.5% 4 Ml Btl OS 11/06/24 05:59 DIRECTED JESSICA PFSH Active Problems Active Problems: Problem Status Onset Code Nuclear age-related cataract, left eye Acute H25.12 Barretts esophagus Acute ~07/03/23 K22.70 Atherosclerosis Acute I70.90 Polyp of colon Acute K63.5 Acute dehydration Acute E86.0 Esophagitis Acute K20.90 Gastritis Acute K29.70 Duodenitis Acute K29.80 Hiatal hernia with GERD Acute K21.9, K44.9 Left ureteral stone Acute ~06/04/23 N20.1 Esophageal thickening Acute K22.89 Inguinal hernia Acute K40.90 Left groin hernia Acute K40.90 Nephrolithiasis Chronic N20.0 Nail dystrophy Acute 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 Q74.2 Tick bite Acute W57.XXXA Skier's thumb 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 G51.0 Blepharitis Acute H01.009 Essential hypertension Acute 10/21/16 I10 Surgical History Surgical History History of esophagogastroduodenoscopy (~06/2023) Tobacco Smoking/Tobacco Use Status: Never Passive smoking exposure: No Second hand exposure: Yes Alcohol Alcohol Intake: never Substance Use Substance use: Never Substance use type: does not use Vital Signs and Lab Results Vital Signs Most Recent Vital Signs in EMR: Most Recent Vital Signs Temp Pulse Resp BP Pulse Ox 36.4 C L 69 16 144/83 H 97 10/07/24 09:20 10/07/24 09:20 10/07/24 09:20 10/07/24 09:20 10/07/24 09:20 Lab Results Blood Type / Crossmatch: No Data to Display Complete Blood Count: No Data to Display Complete Metabolic Panel: No Data to Display Liver Function Panel: No Data to Display Coagulation Panel: No Data to Display Cardiac Panel: No Data to Display Arterial Blood Gas: No Data to Display Venous Blood Gas: No Data to Display Pancreas Panel: No Data to Display Thyroid Panel: No Data to Display Infectious Disease: No Data to Display Blood Cultures: No Data to Display Toxicology Panel: No Data to Display Anesthesia Assessment and Plan Anesthesia History Personal History: No History of Anesthesia Complications Family History: No Family History of Anesthesia Complications Exercise Tolerance Exercise Tolerance: Metabolic Equivalents>4 Pertinent Negatives Pertinent Negatives: No Major Cardiovascular Symptoms or Complaints and No Major Pulmonary Symptoms or Complaints Cardiac & Pulmonary Exam Cardiac Exam: Normal S1/S2 Heart Sounds Pulmonary Exam: Clear Bilateral Breath Sounds Implantable Cardiac Device Does patient have a Pacemaker or an ICD?: No Airway Exam Known Difficult Airway: No Mallampati Class: 1 Mouth Opening: Normal (> 3cm) Thyromental Distance: Greater than 3 cm Neck Range of Motion: Full ROM Neck Circumference: Normal Teeth Condition: Normal Dentition ASA Classification ASA Score: ASA 2 Emergency Case?: No NPO Status NPO Status: NPO Clears >2 hours, Solids >8 hours Anesthesia Plan Resuscitation Status: Full Code Anesthesia Technique: MAC Anesthesia Airway Planned: Natural Airway Monitors Used: Standard Monitors Preoperative Comments:: GA Backup
[2024-10-07] MEDS: Lactated Ringers 1,000 ML 80 ML IV (10:00)
[2024-10-07] MEDS: Tetracaine 0.5% 4 ML BTL OS (10:09)
[2024-10-07] MEDS: Phenylephrine/Lidocaine (15/10) MG/ML 1 ML VIAL (10:18)
[2024-10-07] MEDS: Povidone-Iodine Ophth 30 ML BTL (10:18)
[2024-10-07] MEDS: Duovisc Viscoelastic System EACH 1 EACH (10:19)
[2024-10-07] MEDS: Balanced Salt Soln.-PLUS 500 ML BAG OP (10:19)
[2024-10-07] MEDS: Lidocaine 1% Pres-Free 5 ML VIAL (10:19)
[2024-10-07] MEDS: Moxifloxacin-PF 1 MG/ML VIAL (10:25)
[2024-10-07] MEDS: Prednisolone 1%, Moxifloxacin 0.5%, Bromfenac 0.09% 5.6ML BTL OS (10:34)
[2024-10-07 10:40] VITALS: BP 138/91; PULSE 63; RESP 16; TEMP 36.2; O2SAT 94
--- NOTE | 2024-10-07 10:40 | W.PM.DSUDISC ---
Date of service: 10/07/24 Discharge Plan Disposition Patient Disposition: Home Discharge Details Attending Provider: Dwight Chau Primary Care Provider: [facility] Home Meds and New Rx's Prescriptions: No Action acyclovir 200 mg capsule 200 mg PO QID PRN (Reason: ulcer) Qty: 90 1RF pantoprazole [Protonix] 40 mg tablet,delayed release (DR/EC) 40 mg PO DAILY Qty: 90 4RF Discharge Instructions Stand Alone Forms: DSU Post-Op Cataract, Kati Jain (DSU) Discharge Orders Discharge Orders: Discharge Order (Routine); Ordered 10/07/24 Ordered By: Dwight Chau DS: Diagnosis Discharge Diagnosis (1) Nuclear age-related cataract, left eye: Status: Resolved
--- NOTE | 2024-10-07 10:41 | ROE_ITS ---
Operative Note Operative Note PRE-OP DIAGNOSIS: Nuclear cataract, left eye POST-OP DIAGNOSIS: same PROCEDURE: Cataract extraction using phacoemulsification with intraocular lens implant, left eye SURGEON: Dwight Chau ANESTHESIA TYPE: Local By Surgeon and MAC Refer to Anesthesia Record PATHOLOGY: none sent COMPLICATIONS: None Patient was transported to: same day Patient's condition: stable Implants: Murtaza Clareon [id number] Indications: Progressive decreased vision due to cataract, left eye Procedure Description: CATARACT SURGERY OPERATIVE REPORT PREOPERATIVE DIAGNOSIS: Nuclear cataract, left eye POSTOPERATIVE DIAGNOSIS: Same OPERATION: Cataract extraction using phacoemulsification with posterior chamber intraocular lens implant, left eye. IOL: IOL Motel Clerk/Model: Murtaza Clareon [id number] IOL Power: + 21.0 diopters IOL Serial Number: [id number] Optic Diameter: 6.0mm Haptic/Overall Diameter: 13.0mm PHACO INFO: Murtaza Wildfire, a division of [employer] System with [employer] and [employer] Cumulative Dispersed Energy (CDE): 9.32 seconds SURGEON: Dwight Chau MD, HARPAL ANESTHESIA: Monitored Anesthesia Care (MAC), with local sub-tenon's anesthetic infiltration COMPLICATIONS: None SPECIMENS: None INDICATIONS FOR PROCEDURE: The patient is a 74-year-old male with history of diminished visual acuity in his left eye secondary to the development of nuclear cataract. He is significantly symptomatic that he desires cataract surgery in attempt to improve and maximize his vision. The option of cataract surgery was offered to the patient and he wished to proceed. See office notes for detailed information. PROCEDURE: The correct surgical eye was identified and marked as the left eye and the pupil was dilated in the preoperative area using mydriatics and cycloplegics. The dilated pupil size was 7.0 mm. The patient was brought to the operating room where cardiopulmonary monitoring was instituted and surgical time-out was performed, confirming the correct operative eye and IOL power. Intravenous sedation in the form of Versed and fentanyl was administered. Topical anesthesia was administered and ophthalmic povidone-iodine 5% was instilled into the conjunctival fornices. The luis f-ocular area was prepped with Betadine 10% solution and draped in the usual sterile fashion for intraocular surgery, including an aperture drape. A Tegaderm transparent film dressing was cut in half and used to cover the lashes and lid margins. Care was taken to sequester the lashes and lid margins under the Tegaderm dressing. A lid speculum was placed between the lids of the operative eye and the Murtaza Lux[employer] Revalia operating microscope was maneuvered into position. Usha scissors were then used to make a conjunctival buttonhole approximately 6mm posterior to the limbus in the inferonasal quadrant. Blunt dissection was carried out to expose bare sclera, and a blunt-tipped sub-tenon?s anesthesia cannula was introduced and passed posteriorly along the globe where non- preserved plain lidocaine was injected into posterior sub-Tenon?s space. A sideport knife was used to make a paracentesis port. Intraocular phenylephrine/lidocaine was injected into the anterior chamber. The anterior chamber was then filled with viscoelastic. A keratome knife was used construct a two-plane clear corneal tunnel extending 2.0mm into clear cornea. A flap was raised on the anterior capsule and capsulorhexis forceps were used to complete a continuous curvilinear capsulorhexis of 5.0 mm. Balanced salt solution was then used to perform cortical cleaving hydrodissection and nuclear hydrodelineation until the lens could be freely rotated within the capsular bag. The lens nucleus was then disassembled and removed within the capsular bag and iris plane using phacoemulsification. Residual cortical material was removed using the irrigation/aspiration handpiece. The posterior capsule was carefully polished to remove as much residual lens epithelial cells as safely possible. The capsular bag was then inflated and the anterior chamber deepened with viscoelastic. The lens implant described above was inserted into the capsular bag using the Murtaza Autonome Injector. A Kuglen hook was used to dial the IOL into position. Residual viscoelastic was then removed first from posterior to the IOL, then from the anterior chamber using the I/A handpiece. The lens implant was noted to center nicely within the capsular bag. The incisions were stromally hydrated, and the anterior chamber was reformed using BSS. Then 0.5cc of moxifloxacin 1.0mg/ml were injected into the capsular bag and anterior chamber. The incisions were checked with a Weck spear and found to be secure. Several drops of ophthalmic povidone-iodine 5% were then applied to the eye followed by two drops of combination steroid/NSAID/antibiotic solution. The drapes were removed and a clear plastic protective eye shield was placed over the eye. The patient was then returned to [facility] in stable condition. Date of Procedure: 10/07/24
--- NOTE | 2024-10-07 11:06 | W.ANESPOSTOP ---
Postoperative Evaluation Date, Time and Location Date Performed: 10/07/24 Time Performed: 10:50 Patient Location: Day Surgery Unit Vital Signs Most Recent Imported Vital Signs: Most Recent Vital Signs Temp Pulse Resp BP Pulse Ox 36.2 C L 63 16 138/91 H 94 10/07/24 10:40 10/07/24 10:40 10/07/24 10:40 10/07/24 10:40 10/07/24 10:40 Pain Score Most Recent Pain Score: Most Recent Pain Score Pain Level 0 10/07/24 10:40 Assessment Mental Status: Awake (Alert & Oriented to Patient Baseline) Airway and Respiratory Function: Patent airway with normal (patient baseline) respiratory exam Cardiovascular Function: Hemodynamically Stable Hydration Status: Adequately Hydrated Nausea & Vomiting: No Nausea or Vomiting Pain: Pt. Denies Any Pain Peripheral Nerve Block: Patient did not receive a nerve block
[2024-10-07 11:20] VITALS: BP 120/83; PULSE 60; RESP 16; TEMP 36.2; O2SAT 94
== END 2024-10-07 11:30 | disposition home or self-care (01) ==
LOC: SUR 09:13
PROVIDERS: PCP Family Medicine; Visit Provider Ophthalmology
PROC: (CPT 66984; principal; 2024-10-07 11:30)
DX: H25.12 Age-related nuclear cataract, left eye (principal)
CPT/HCPCS: 66984; 00123; V2632; J2003; J2250; J3010